=== PATIENT | male | born 1985 | race Caucasian/White ===

== ENCOUNTER 2017-02-08 11:34 | Emergency (ER) | payer SELFPAY | END 2017-02-08 14:18 | disposition home or self-care (01) | LOC: ER 11:34 | DX: M79.1 Myalgia (principal); M25.511 Pain in right shoulder; M25.531 Pain in right wrist; M54.2 Cervicalgia; M54.6 Pain in thoracic spine; V43.62XA Car passenger injured in collision with other type car in traffic accident, initial encounter; Y92.410 Unspecified street and highway as the place of occurrence of the external cause; F11.20 Opioid dependence, uncomplicated; F17.210 Nicotine dependence, cigarettes, uncomplicated; Z88.6 Allergy status to analgesic agent | CPT/HCPCS: 72040; 72072; 72100; 73030; 73110; 99283; 99284 ==

== ENCOUNTER 2017-02-14 00:44 | Emergency (ER) | payer SELFPAY ==
[2017-02-14 01:10] LABS: BASO % 0.3 % (0.2-1.2); EOS # 0.2 10_X3_uL (0.0-0.5); EOS % 1.4 % (0.8-7.0); GRAN # 8.4 10_X3_uL (1.8-5.4); GRAN % 70.8 % (34.0-67.9); HEMOGLOBIN 14.4 g/dL (13.7-17.5); LYMPH # 2.5 10_X3_uL (1.3-3.6); LYMPH % 21.2 % (21.8-53.1); MEAN CORPUSCULAR HEMOGLOBIN 28.3 pg (27.0-33.0); MEAN CORPUSCULAR HGB CONC 34.3 g/dL (32.0-36.0); MEAN CORPUSCULAR VOLUME 82.7 fL (79-92); MEAN PLATELET VOLUME 10.1 fl (7.5-11.5); MONO # 0.7 10_X3_uL (0.3-0.8); MONO % 6.3 % (5.3-12.2); PLATELET COUNT 256 x10_3/uL (163-337); RED BLOOD COUNT 5.08 x10_6/uL (4.6-6.1); RED CELL DISTRIBUTION WIDTH 13.8 % (11.6-14.4); WHITE BLOOD COUNT 11.8 x10_3/uL (4.2-9.1)
[2017-02-14 01:28] LABS: ALBUMIN 4.6 gm/dL (3.4-5.0); ALKALINE PHOSPHATASE 64 U/L (50-136); ALT/SGPT 12 U/L (7.53-40.17); AMYLASE 61 U/L (15.62-74.58); AST/SGOT 17 U/L (6.66-35.34); BILIRUBIN,TOTAL 0.41 mg/dL (0.0-1.0); BLOOD UREA NITROGEN 8 mg/dL (7-18); CALCIUM 9.1 mg/dL (8.7-10.7); CARBON DIOXIDE 26 mmol/L (21-32); CREATININE 0.6 mg/dL (0.6-1.3); GLUCOSE,RANDOM 104 mg/dL (70-99); LIPASE 17 U/L (6.75-60.75); POTASSIUM 3.7 mmol/L (3.5-5.1); SODIUM 139 mmol/L (136-145); TOTAL PROTEIN 7.6 gm/dL (6.4-8.2)
== END 2017-02-14 02:39 | disposition home or self-care (01) ==
LOC: ER 00:44
PROVIDERS: Emergency Medicine
DX: R10.84 Generalized abdominal pain (principal); F17.210 Nicotine dependence, cigarettes, uncomplicated
CPT/HCPCS: 36415; 80053; 82150; 83690; 85025; 96372; 99284; 99284-25